=== PATIENT | female | born 1980 ===

== ENCOUNTER 2017-06-16 10:49 | Observation (INO) | payer SELFPAY ==
[2017-06-16 11:10] VITALS: PULSE 68; RESP 16; TEMP 98.8; O2SAT 100; BMI 30.2
--- NOTE | 2017-06-16 11:47 | ED PDOC ---
HPI: Abdomen Time Seen by Provider: 06/16/17 11:11 Chief Complaint (Nursing): Abdominal Pain Chief Complaint (Provider): Abdominal Pain History Per: Patient History/Exam Limitations: no limitations Onset/Duration Of Symptoms: Other (3 weeks) Associated Symptoms: denies: Fever, Nausea, Vomiting, Diarrhea, Constipation, Urinary Symptoms Additional Complaint(s): Latisha Moore is a 36 year old female who presents to the ED for evaluation of abdominal pain daily for the past 3 weeks. She reports that pain is worst in the morning. She endorses bloating and headaches. She denies fevers, nausea, vomiting, constipation, diarrhea, or any genitourinary symptoms. She has not medical problems or surgical history. Past Medical History Reviewed: Historical Data, Nursing Documentation, Vital Signs Vital Signs: Last Vital Signs Temp 98.8 F 06/16/17 11:09 Pulse 68 06/16/17 11:09 Resp 16 06/16/17 11:09 BP 173/88 H 06/16/17 11:09 Pulse Ox 100 06/16/17 15:00 - Allergies Allergies/Adverse Reactions: Allergies Allergy/AdvReac Type Severity Reaction Status Date / Time Penicillins Allergy RASH Verified 06/16/17 11:39 Review of Systems Constitutional: Negative for: Fever Gastrointestinal: Positive for: Abdominal Pain, Other (Bloating ). Negative for : Nausea, Vomiting, Diarrhea, Constipation Genitourinary Female: Negative for: Dysuria, Frequency, Incontinence, Hematuria Neurological: Positive for: Headache Physical Exam - Physical Exam Appears: Positive for: Non-toxic, No Acute Distress Head Exam: Positive for: ATRAUMATIC, NORMOCEPHALIC Skin: Positive for: Normal Color, Warm, Dry Eye Exam: Positive for: EOMI, Normal appearance, PERRL Neck: Positive for: Normal, Painless ROM, Supple Cardiovascular/Chest: Positive for: Regular Rate, Rhythm. Negative for: Murmur Respiratory: Positive for: Normal Breath Sounds. Negative for: Respiratory Distress Gastrointestinal/Abdominal: Positive for: Tenderness (General abdominal tenderness most tender in left mid lateral abdomen.). Negative for: Guarding, Rebound Back: Positive for: Normal Inspection. Negative for: L CVA Tenderness, R CVA Tenderness, Other (Midline tenderness) Extremity: Positive for: Normal ROM. Negative for: Pedal Edema, Deformity Neurologic/Psych: Positive for: Alert, Oriented. Negative for: Motor/Sensory Deficits - Laboratory Results Result Diagrams: 06/16/17 12:30 06/16/17 12:30 - ECG O2 Sat by Pulse Oximetry: 100 Medical Decision Making Medical Decision Making: Impression: Abdominal Pain Diverticulitis Plan: CT A/P with PO and iv contrast Urine Dip Urine Preg Scribe Attestation: Documented by Randolph Miller, acting as a scribe for Akiko Bobby MD. Provider Scribe Attestation: All medical record entries made by the Scribe were at my direction and personally dictated by me. I have reviewed the chart and agree that the record accurately reflects my personal performance of the history, physical exam, medical decision making, and the department course for this patient. I have also personally directed, reviewed, and agree with the discharge instructions and disposition. ED OBSERVATION - Progress Note Progress Note: 06/16/17 12:15 Placed on Obs because of extensive time of workup. 06/16/17 13:45 No changes. Patient resting comfortably. Vitals stable. 06/16/17 15:15 No changes. Patient resting comfortably. Vitals stable. 06/16/17 16:45 No changes. Patient resting comfortably. Vitals stable. Disposition - Patient ED Disposition Is Patient to be Admitted: Transfer of Care - Disposition Disposition Time: 15:00 Condition: FAIR
[2017-06-16] MEDS ORDERED: Iohexol 240 (50 ml) PO STA (12:12)
[2017-06-16] MEDS ORDERED: Iohexol 240 (50 ml) ONE (12:36)
[2017-06-16 12:57] LABS: RBC URINE 89 /hpf (0-3); URINE BACTERIA RARE (<OCC); URINE BILIRUBIN NEGATIVE (NEGATIVE); URINE BLOOD LARGE (NEGATIVE); URINE COLOR YELLOW (YELLOW); URINE GLUCOSE (UA) NEG (Normal); URINE KETONE NEGATIVE (NEGATIVE); URINE LEUKOCYTE ESTERASE NEG Leu/uL (Negative); URINE PROTEIN NEGATIVE (NEGATIVE); URINE UROBILINOGEN 0.2-1.0 mg/dL (0.2-1.0); WBC URINE 3 /hpf (0-5)
[2017-06-16 12:58] LABS: BASO % 0.8 % (0.0-2.0); EOS # 0.2 K/uL (0.0-0.7); EOS % 3.5 % (0.0-4.0); HEMATOCRIT 37.6 % (34.0-47.0); LYMPH # 1.9 K/uL (1.0-4.3); LYMPH % 37.3 % (20.0-40.0); MEAN CELL VOLUME 86.5 fl (81.0-99.0); MEAN CORPUSCULAR HEMOGLOBIN 28.7 pg (27.0-31.0); MEAN CORPUSCULAR HGB CONC 33.1 g/dL (33.0-37.0); MEAN PLATELET VOLUME 7.8 fl (7.2-11.7); MONO # 0.2 K/uL (0.0-0.8); MONO % 4.6 % (0.0-10.0); NEUT # 2.8 K/uL (1.8-7.0); NEUT % 53.8 % (50.0-75.0); NRBC % 0.2 % (0.0-0.0); WHITE BLOOD COUNT 5.2 K/uL (4.8-10.8)
[2017-06-16 13:07] LABS: ALB/GLOB RATIO 1.6 (1.0-2.1); ALKALINE PHOSPHATASE 58 U/L (38-126); ALT/SGPT 23 U/L (9-52); AST/SGOT 16 U/L (14-36); BILIRUBIN,TOTAL 0.3 mg/dl (0.2-1.3); BLOOD UREA NITROGEN 19 mg/dl (7-17); CALCIUM 9.4 mg/dL (8.4-10.2); CARBON DIOXIDE 25 mmol/L (22-30); CHLORIDE 104 mmol/L (98-107); GFR AFRICAN-AMERICAN > 60; GLUCOSE,RANDOM 101 mg/dL (65-105); LIPASE 102 U/L (23-300); SODIUM 139 mmol/l (132-148)
--- NOTE | 2017-06-16 15:12 | ED PDOC ---
- Laboratory Results Result Diagrams: 06/16/17 12:30 06/16/17 12:30 - ECG O2 Sat by Pulse Oximetry: 100 Medical Decision Making Medical Decision Makin -Patient transferred to ut by Dr. Bobby. Pending CT and labs 1629 CT Abd & Pelvis FINDINGS: LOWER THORAX: The lung bases are clear. LIVER: The liver is normal in size and there is homogeneous enhancement. No gross lesion or ductal dilatation. GALLBLADDER AND BILE DUCTS: The gallbladder is partially contracted. There are small gallstones. PANCREAS: The pancreas is normal in size and there is homogeneous enhancement. No gross lesion or ductal dilatation. SPLEEN: The spleen is normal in size and there is homogeneous enhancement without focal lesion. ADRENALS: Both adrenal glands are normal in size without discrete nodule. KIDNEYS AND URETERS: Both kidneys are normal in size and there is homogeneous enhancement without hydronephrosis or nephrolithiasis. Mild fullness in both collecting system is likely related to an over distended urinary bladder. VASCULATURE: No aortic aneurysm. BOWEL: The small bowel loops are normal in caliber. APPENDIX: Normal appendix. PERITONEUM: No free fluid. No free air. LYMPH NODES: No enlarged lymph nodes. BLADDER: Over distended and normal in appearance REPRODUCTIVE: The uterus is normal in size. BONES: No acute fracture. OTHER FINDINGS: None. IMPRESSION: 1. Partially contracted gallbladder. Cholelithiasis. 2. No CT evidence for acute appendicitis, bowel obstruction or obstructive uropathy. 1643 -Ordered Abdomen Limited (GB included) [US] 1724 US FINDINGS: LIVER: Measures 16.4 cm in length. Normal echogenicity of the liver parenchyma. No mass. No intrahepatic bile duct dilatation. GALLBLADDER: The gallbladder is partially contracted. There is a 1.5 cm stone. No wall thickening, pericholecystic fluid or positive sonographic Edge's sign. COMMON BILE DUCT: Measures 3.1 mm. No stones. No dilatation. PANCREAS: Unremarkable as visualized. No mass. No ductal dilatation. RIGHT KIDNEY: Measures 11.2 cm in length. Normal echogenicity. No calculus, mass, or hydronephrosis. There is a 3.8 x 2.2 x 2.2 cm parapelvic cyst. AORTA: No aneurysmal dilatation. IVC: Unremarkable. OTHER FINDINGS: None . IMPRESSION: Solitary 1.5 cm gallstone. No sonographic evidence for acute cholecystitis. Disposition Doctor Will See Patient In The: Office Counseled Patient/Family Regarding: Studies Performed, Diagnosis, Need For Followup - Clinical Impression Clinical Impression: Abdominal pain - POA Present On Arrival: None - Disposition Disposition: Routine/Home Disposition Time: 19:06 Condition: GOOD ED OBSERVATION Date of observation admission: 06/16/17 Time of observation admission: 16:40 - Observation admission statement Patient is being placed in observation because:: Need for additional diagnostics to rule-out acute or life threatening condition - Goals of Observation Goals of observation are:: Resolution of symptoms - Progress Note Progress Note: 06/16/17 16:46 Patient is awake, vitals are stable, but symptoms persist 06/16/17 18:54 Patient is awake and comfortable, vitals are stable
[2017-06-16] MEDS ORDERED: Iohexol 300 100 ML IJ ONE (15:48)
[2017-06-16] MEDS ORDERED: Sodium Chloride 0.9% 50 ML IV ONE (15:48)
--- NOTE | 2017-06-16 16:30 | CT ---
PROCEDURE: CT Abdomen and Pelvis with contrast HISTORY: Abdominal pain COMPARISON: None. TECHNIQUE: CT scan of the abdomen and pelvis was performed after intravenous administration of contrast. Oral contrast was administered. Coronal and sagittal reformatted images were obtained. Contrast dose: 90 mL Omnipaque 300 Radiation dose: Total exam DLP = 873.78 mGy-cm. This CT exam was performed using one or more of the following dose reduction techniques: Automated exposure control, adjustment of the mA and/or kV according to patient size, and/or use of iterative reconstruction technique. FINDINGS: LOWER THORAX: The lung bases are clear. LIVER: The liver is normal in size and there is homogeneous enhancement. No gross lesion or ductal dilatation. GALLBLADDER AND BILE DUCTS: The gallbladder is partially contracted. There are small gallstones. PANCREAS: The pancreas is normal in size and there is homogeneous enhancement. No gross lesion or ductal dilatation. SPLEEN: The spleen is normal in size and there is homogeneous enhancement without focal lesion. ADRENALS: Both adrenal glands are normal in size without discrete nodule. KIDNEYS AND URETERS: Both kidneys are normal in size and there is homogeneous enhancement without hydronephrosis or nephrolithiasis. Mild fullness in both collecting system is likely related to an over distended urinary bladder. VASCULATURE: No aortic aneurysm. BOWEL: The small bowel loops are normal in caliber. APPENDIX: Normal appendix. PERITONEUM: No free fluid. No free air. LYMPH NODES: No enlarged lymph nodes. BLADDER: Over distended and normal in appearance REPRODUCTIVE: The uterus is normal in size. BONES: No acute fracture. OTHER FINDINGS: None. IMPRESSION: 1. Partially contracted gallbladder. Cholelithiasis. 2. No CT evidence for acute appendicitis, bowel obstruction or obstructive uropathy.
--- NOTE | 2017-06-16 17:54 | US ---
HISTORY: Abdominal pain, gallstones COMPARISON: CT abdomen and pelvis performed TECHNIQUE: Grayscale imaging was performed. FINDINGS: LIVER: Measures 16.4 cm in length. Normal echogenicity of the liver parenchyma. No mass. No intrahepatic bile duct dilatation. GALLBLADDER: The gallbladder is partially contracted. There is a 1.5 cm stone. No wall thickening, pericholecystic fluid or positive sonographic Edge's sign. COMMON BILE DUCT: Measures 3.1 mm. No stones. No dilatation. PANCREAS: Unremarkable as visualized. No mass. No ductal dilatation. RIGHT KIDNEY: Measures 11.2 cm in length. Normal echogenicity. No calculus, mass, or hydronephrosis. There is a 3.8 x 2.2 x 2.2 cm parapelvic cyst. AORTA: No aneurysmal dilatation. IVC: Unremarkable. OTHER FINDINGS: None . IMPRESSION: Solitary 1.5 cm gallstone. No sonographic evidence for acute cholecystitis.
[2017-06-16 19:41] VITALS: BP 148/62
== END 2017-06-16 19:41 | disposition home or self-care (01) ==
LOC: H.ER 10:49 → H.EROBSV 12:13
PROVIDERS: ADMIT Emergency Medicine; ATTEND Emergency Medicine
DX: K57.92 Diverticulitis of intestine, part unspecified, without perforation or abscess without bleeding (principal); K80.20 Calculus of gallbladder without cholecystitis without obstruction; Z88.0 Allergy status to penicillin
CPT/HCPCS: 36415; 74177; 76705; 80053; 81003; 81025; 83690; 85025; 99283; G0378; J2270; Q9966; Q9967